=== PATIENT | male | born 1985 | race African-American/Black ===

== ENCOUNTER 2020-07-04 11:35 | Emergency (ER) | payer MEDICAID ==
[~2020-07-04] VITALS: Ht 185.4 cm; Wt 220.0 kg
[2020-07-04 13:10] VITALS: BP 120/66
== END 2020-07-04 13:11 | disposition home or self-care (01) ==
LOC: ER 11:35
DX: R05 Cough (principal); L97.518 Non-pressure chronic ulcer of other part of right foot with other specified severity; Z98.890 Other specified postprocedural states
CPT/HCPCS: 71045; 99283

== ENCOUNTER 2020-07-13 07:06 | Emergency (ER) | payer MEDICAID ==
[~2020-07-13] VITALS: Ht 188 cm; Wt 84.0 kg
[2020-07-13] MEDS ORDERED: IBUPROFEN 600MG TABLET PO STA (09:23)
[2020-07-13] MEDS ORDERED: ALBUTEROL 6.7GM HFA INHALER ORI ONE (09:30)
[2020-07-13 10:50] VITALS: BP 120/64
== END 2020-07-13 10:58 | disposition home or self-care (01) ==
LOC: ER 07:06
DX: J20.9 Acute bronchitis, unspecified (principal); F17.210 Nicotine dependence, cigarettes, uncomplicated
CPT/HCPCS: 71045; 93005; 94640; 99283

== ENCOUNTER 2020-07-23 08:13 | Emergency (ER) | payer MEDICAID ==
[~2020-07-23] VITALS: Ht 177.8 cm; Wt 91.0 kg
[2020-07-23] MEDS ORDERED: KETOROLAC 60MG/2ML VIAL IM ONE (08:45)
[2020-07-23 13:31] VITALS: BP 119/78
== END 2020-07-23 13:35 | disposition home or self-care (01) ==
LOC: ER 08:13
DX: S02.609A Fracture of mandible, unspecified, initial encounter for closed fracture (principal); S06.0X9A Concussion with loss of consciousness of unspecified duration, initial encounter; Y04.0XXA Assault by unarmed brawl or fight, initial encounter; Y93.89 Activity, other specified; Y92.89 Other specified places as the place of occurrence of the external cause; Y99.8 Other external cause status
CPT/HCPCS: 70450; 70486; 72125; 99285; J1885

== ENCOUNTER 2020-12-16 07:52 | Emergency (ER) | payer MEDICAID, OTHER ==
[~2020-12-16] VITALS: Ht 185.4 cm; Wt 97.0 kg
[2020-12-16] MEDS ORDERED: VISCOUS LIDOCAINE 2% 15 ML UDC PO STA (08:04)
[2020-12-16] MEDS ORDERED: KETOROLAC 30MG/ML VIAL IV STA (08:04)
[2020-12-16] MEDS ORDERED: SODIUM CHLORIDE 0.9% 1,000 ML IV ONE (08:15)
[2020-12-16] MEDS ORDERED: DEXAMETHASONE 4MG/ML 1ML VIAL IV ONE (08:15)
[2020-12-16 09:35] VITALS: BP 146/95
[2020-12-16] MEDS ORDERED: TOPUD MT (10:37)
[2020-12-16] MEDS ORDERED: AMOX-424 MT (10:37)
== END 2020-12-16 11:02 | disposition home or self-care (01) ==
LOC: ER 07:52
DX: J02.0 Streptococcal pharyngitis (principal)
CPT/HCPCS: 87430; 94640; 96361; 96374; 96375; 99284; J1100; J1885; J7030; Z7610

== ENCOUNTER 2021-02-01 09:37 | Emergency (ER) | payer OTHER ==
[~2021-02-01] VITALS: Ht 185.4 cm; Wt 95.0 kg
[~2021-02-01 09:37] MED LIST: AMOX-424 MT; TOPUD MT
[2021-02-01] MEDS ORDERED: CEFTRIAXONE SODIUM 250 MG/VIAL IM ONE (10:15)
[2021-02-01] MEDS ORDERED: DOXYCYCLINE HYCLATE 100MG CAPSULE PO ONE (10:15)
[2021-02-01] MEDS ORDERED: DOXY100T2 PO (10:27)
[2021-02-01 10:45] VITALS: BP 110/78
[2021-02-01] MEDS ORDERED: DOXYCYCLINE HYCLATE 100MG CAPSULE PO NR (10:45)
== END 2021-02-01 10:46 | disposition home or self-care (01) ==
LOC: ER 09:37
DX: Z20.2 Contact with and (suspected) exposure to infections with a predominantly sexual mode of transmission (principal)
CPT/HCPCS: 87591; 96372; 99283; J0696

== ENCOUNTER 2022-10-14 14:27 | Emergency (ER) | payer MEDICAID, OTHER ==
[~2022-10-14] VITALS: Ht 182.9 cm; Wt 90.0 kg
[~2022-10-14 14:27] MED LIST changes: -AMOX-424 MT
[2022-10-14 14:32] VITALS: BP 143/79
[2022-10-14] MEDS ORDERED: KETOROLAC 60MG/2ML VIAL IM STA (15:10)
[2022-10-14] MEDS ORDERED: KETOROLAC 60MG/2ML VIAL IM NR (15:15)
[2022-10-14] MEDS ORDERED: DEXAMETHASONE 10 MG/ML VIAL IM ONE (15:15)
[2022-10-14] MEDS ORDERED: PENICILLIN G BENZATHINE 1,200,000 UNITS/2ML SYR IM NR (15:15)
[2022-10-14] MEDS ORDERED: PENICILLIN G BENZATHINE 1,200,000 UNITS/2ML SYR IM ONE (15:15)
[2022-10-14] MEDS ORDERED: DEXAMETHASONE 10 MG/ML VIAL IM NR (15:15)
[2022-10-14 17:12] LABS: BASOPHILS % 0.2 % (0.0-2.0); EOSINOPHILS % 0.1 % (0.0-5.0); HEMATOCRIT. 44.7 % (42.0-52.0); HEMOGLOBIN. 14.4 g/dL (14.0-18.0); LYMPHOCYTES % 9.8 % (20.0-50.0); MEAN CORPUSCULAR HEMOGLOBIN 21.8 pg (28.0-32.0); MEAN CORPUSCULAR VOLUME 67.5 fL (80.0-94.0); MEAN PLATELET VOLUME 9.3 fl (7.4-10.4); MONOCYTES % 11.7 % (2.0-8.0); NEUTROPHILS % 78.2 % (40.0-76.0); PLATELET 275 x1000/uL (130-400); RED BLOOD CELL COUNT 6.62 mill/uL (4.7-6.1)
[2022-10-14 17:30] LABS: CHLORIDE 101 mEq/L (98-107)
[2022-10-14 17:38] LABS: PLATELET ESTIMATE NORMAL
[2022-10-14] MEDS ORDERED: CLIN-194 MT (21:37)
[2022-10-14] MEDS ORDERED: AMPICILLIN SOD/SULBACTAM NA 3 G in SODIUM CHLORIDE 0.9% 100 ML IV SCH (21:45)
[2022-10-15] MEDS ORDERED: IOHEXOL-300 100 ML BOTTLE ONE (04:55)
== END 2022-10-14 22:06 | disposition home or self-care (01) ==
LOC: ER 14:27
DX: J02.9 Acute pharyngitis, unspecified (principal); J45.909 Unspecified asthma, uncomplicated
CPT/HCPCS: 36415; 70491; 80053; 85025; 87070; 87430; 96372; 99285; J0561; J1100; J1885; Q9967; J0295; J7050